=== PATIENT | female | born 1990 | race Caucasian/White ===

== ENCOUNTER 2018-09-13 22:09 | Emergency (ER) | payer MEDICAID ==
[~2018-09-13] VITALS: Ht 157.5 cm; Wt 53.1 kg
--- NOTE | 2018-09-13 22:12 | NUR ---
Patient to ER bed 06 to gown for evaluation. Side rails up.
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
--- NOTE | 2018-09-13 22:15 | NUR ---
Dr Weeks at bedside examining patient
[2018-09-13 22:17] VITALS: BP_SYST 140
--- NOTE | 2018-09-13 22:55 | NUR ---
Patient given written and verbal discharge instructions and verbalizes understanding. ER MD discussed with patient the results and treatment provided. Patient in stable condition. ID arm band removed. Rx of Motrin given. Patient educated on pain management and to follow up with PMD. Pain Scale 2/10 tolerable for patient. Opportunity for questions provided and answered. Medication side effect fact sheet provided.
[2018-09-13 22:56] VITALS: BP_SYST 140
== END 2018-09-13 22:56 | disposition home or self-care (01) ==
LOC: SED 22:09
DX: S16.1XXA Strain of muscle, fascia and tendon at neck level, initial encounter (principal); V43.52XA Car driver injured in collision with other type car in traffic accident, initial encounter; Y93.89 Activity, other specified; Y92.410 Unspecified street and highway as the place of occurrence of the external cause; Y99.8 Other external cause status
CPT/HCPCS: 99282